=== PATIENT | female | born 1990 | race Caucasian/White ===

== ENCOUNTER 2022-10-03 11:21 | Emergency (ER) | payer MEDICAID, OTHER ==
[2022-10-03] MEDS ORDERED: Sodium Chloride 0.9% 10 ML Syringe FLUSH PRN (11:38)
[2022-10-03] MEDS ORDERED: LORazepam 2 MG/ML SDV IVPUSH ONE (11:39)
[2022-10-03] MEDS ORDERED: LORazepam 2 MG/ML SDV IM PRN (11:57)
[2022-10-03] MEDS ORDERED: Cyclobenzaprine 10 MG Tab PO ONE ×2 (12:04→16:19)
[2022-10-03 12:43] LABS: BARBITURATE SCREEN,URINE NEGATIVE (NEGATIVE); BENZODIAZEPINES SCREEN,URINE NEGATIVE (NEGATIVE); EDDP,URINE SCREEN NEGATIVE (NEGATIVE); TCA SCREEN,URINE NEGATIVE (NEGATIVE); THC SCREEN,URINE 50 NG/ML POSITIVE (NEGATIVE)
[2022-10-03 12:58] LABS: BUPRENORPHINE SCREEN,URINE POSITIVE (NEGATIVE)
[2022-10-03 13:53] LABS: POTASSIUM,POC 3.9 mmol/L (3.5-4.5)
[2022-10-03] MEDS ORDERED: LORazepam 1 MG Tab PO ONE (16:19)
== END 2022-10-03 16:58 | disposition home or self-care (01) ==
LOC: LL.ED 11:21
DX: F41.0 Panic disorder [episodic paroxysmal anxiety] (principal); F17.210 Nicotine dependence, cigarettes, uncomplicated
CPT/HCPCS: 36415; 80047; 80305-QW; 81001; 85025; 96372; 99283; 99284; A9270-GY; J2060